=== PATIENT | male | born 1950 | race Caucasian/White ===

== ENCOUNTER 2022-01-01 10:37 | Outpatient (CLI) | payer MEDICARE, OTHER, SELFPAY ==
[2022-01-01 19:28] LABS: Uric Acid* 8.9 mg/dL (2.2-8.4)
== END 2022-01-01 10:38 | disposition home or self-care (01) ==
LOC: LONREF 10:39
PROVIDERS: PCP Family Medicine; Visit Provider Nurse Practitioner Family
DX: M10.9 Gout, unspecified (principal)
CPT/HCPCS: 84550

== ENCOUNTER 2022-05-05 09:29 | Outpatient (CLI) | payer MEDICARE, OTHER, SELFPAY ==
--- OUTSIDE RECORDS SUMMARY | 2022-05-05 09:42 | XMS_ITS | Clinical Summary ---
:1950 Author Organization [employer] [facility] [place] [employer] [place] [address] Care Team Providers Name Role Phone Ken Aleman MD Primary Care Provider Allergies Active Allergy Reactions Severity Noted Date Comments Fluconazole Rash 10/08/2015 Morphine Hypotension, Other - Describe In Comment Field Liraglutide Nausea And Vomiting 01/14/2018 Medications Medication Sig Dispensed Refills Start End Date Status Date ASPIRIN ORAL 81 mg daily 0 Activ e 7 Fish Oil-DHA-EPA Take by mouth. Pt 0 Active (FISH OIL) takes two capsules 1 1,200-144-216 mg bid. Cap lancetsIndication Test 1 times per 100 Each 3 Active s: Diabetes day. 8 mellitus without complication (HC) atorvastatin Take 1 tablet by 90 tablet 3 Active (LIPITOR) 40 mg mouth once daily. 9 tabletIndications : Dyslipidemia carvedilol Take 1 tablet by 180 tablet 3 A ctive (COREG) 25 mg mouth 2 times 9 tabletIndications daily with meals. : Hypertension, Diabetes mellitus without complication (HC) gemfibrozil Take 1 tablet by 180 tablet 3 Active (LOPID) 600 mg mouth 2 times 9 tabletIndications daily before : Type 2 diabetes meals. mellitus without complication, unspecified whether custodial insulin use (HC) omeprazole Take 1 capsule by 90 capsule 3 Active (PRILOSEC) 20 mg mouth once daily 9 Delayed-Release before a meal. capsuleIndication s: Type 2 diabetes mellitus without complication, unspecified whether terminal worker insulin use (HC) allopurinoL Take 2 tablets by 180 tablet 3 Active (ZYLOPRIM) 100 mg mouth once daily. 0 tabletIndications : Gout, unspecified cause, unspecified chronicity, unspecified site amLODIPine Take 10 mg by 0 Activ e (NORVASC) 10 mg mouth once daily. 0 tablet Diabetic As directed. 1 Device 0 Active ShoeIndications: dispense 1 pair 1 Controlled type 2 custom shoes with diabetes mellitus 3 sets of custom without orthotics complication, with long-term current use of insulin (HC) lisinopriL TAKE ONE TABLET BY 90 Tablet 1 Active (PRINIVIL; MOUTH ONE TIME 1 ZESTRIL) 40 mg DAILY tabletIndications : Type 2 diabetes mellitus without complication, unspecified whether terminal worker insulin use (HC) ketoconazole 2% 2X Per Week 0 Ac tive shampoo (NIZORAL) 0 2 % shampoo ketoconazole 2% apply to the 0 A ctive topical (NIZORAL) affected area 2 cream daily pimecrolimus apply a small 0 Act kirt (ELIDEL) 1 % amount to affected 2 cream area and rub in well, twice daily. insulin lispro Inject 100 units 180 mL 3 Active protamine-lispro, subcutaneous in 2 75-25, (HUMALOG the morning and 75-25 KWIKPEN) 100 units in the 100 unit/mL evening. Inject (75-25) before meals. penIndications: Type 2 diabetes mellitus without complication, with long-term current use of insulin (HC) blood sugar Dispense item 300 Each 3 Acti ve diagnostic covered by pt ins. 2 (Contour Next E11.65 IDDM type Test Strips) II, uncontrolled - stripIndications: Test 3 times/day. Type 2 diabetes mellitus without complication, with long-term current use of insulin (HC) pen needle, Dispense product 200 Each 3 A ctive diabetic (BD covered by 2 Insulin Pen insurance. For Needle UF) 31 administering gauge x insulin at home 2 11/17Indications: times daily. Controlled type 2 diabetes mellitus without complication, with long-term current use of insulin (HC) Diabetic As directed. 1 1 Each 0 Activ e ShoeIndications: pair of diabetic 2 Controlled type 2 shoes with 3 sets diabetes mellitus of custom molded without inserts complication, with long-term current use of insulin (HC) metFORMIN Take 1 Tablet 180 Tablet 1 Activ e (GLUCOPHAGE) (1,000 mg) by 2 1,000 mg mouth 2 times tabletIndications daily with meals. : Diabetes mellitus without complication (HC) metFORMIN Take 1 Tablet 180 tablet. 3 04/15/20 Disc ontinued (GLUCOPHAGE) (1,000 mg) by 1 22 1,000 mg mouth 2 times tabletIndications daily with meals. 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 Obstructive sleep apnea 01/08/2009 Overview: diagnosis 2008 - uses cpap Dyslipidemia 01/08/2009 Erectile dysfunction 01/08/2009 Gout, unspecified 01/08/2009 DIABETES 05/26/2002 Overview: diagnosis approximately 2000 Encounters Date Type Specialty Care Team Description 04/15/2022 Telephone Bret Solitario Conce rns MD 04/15/2022 Refill Bret Solitario Refil l Request (Metformin) 03/26/2022 Telephone Bret Solitario DME S upply (/Shoe inserts) 02/16/2022 Office Visit Bret Solitario Diabe carine (14 month follow up) 02/16/2022 Travel 02/09/2022 Orders Only Lab, [facility] 02/09/2022 Travel 02/02/2022 Telephone Bret Solitario Lab ( FASTING LAB ORDER FOR DIABETES CHECK) from Last 3 Months Immunizations Name Administration Dates Next Due Influenza A (H1N1), Inactivated 07/16/2009 Influenza Virus, Unspecified 04/11/2020, 04/13/2018, 016, 03/22/2012 Influenza, High-dose Inactivated 04/13/2018 Influenza, High-dose Quadrivalent 03/31/2021 Inactivated Influenza, IIV3 (Age 6-35 mos) 04/07/2011, 03/26/2009 Influenza, IIV3 (Age >=3 years) 04/11/2014, 04/10/2013, 03/05, 04/07/2011, 03/31/2010 Influenza, IIV4 04/21/2017, 04/23/2015, 07/16/2009 Influenza, Inactivated IIV3 (Age 65+ 03/28/2019 Years) Preserv Free Pneumococcal Poly,23-Valent 02/14/2020, 01/31/2015, 04/30/20 09 (Pneumovax) Pneumococcal conj 13-Valent (Prevnar 10/11/2017 13) Td (Age >=7 Years) 09/28/2003 Tdap 10/10/2021, 05/19/2012 Zoster (Shingrix-RZV, recombinant) 06/14/2019, 03/28/2019 Zoster (Zostavax-ZVL, live) 04/01/2012, 07/05/2011 Family History Medical History Relation Name Comments Diabetes Father pre Heart Disease Father after 55 Cancer-prostate Maternal Grandfather Diabetes Mother Other Mother alzheimers Cancer-prostate Paternal Uncle 1 multiple uncles w/ prost ca Heart Disease Paternal Uncle 2 [place] age 53 Relation Name Status Comments Father Alive Maternal Grandfather Mother Paternal Uncle 1 Paternal Uncle 2 Social History Tobacco Use Types Packs/Day Years Used Date Former Smoker Quit: 07/05/18 77 Smokeless Tobacco: Never Used Tobacco Cessation: Counseling Given: Yes Alcohol Use Standard Drinks/Week Comments Yes 0 (1 standard drink = 0.6 oz pure alcoho l) occasional beer 1 -2 week Alcohol Habits Answer Date Recorded How often do you have a drink containing Not asked alcohol? How many drinks containing alcohol do you Not asked have on a typical day when you are drinking? How often do you have six or more drinks on Not asked one occasion? Comment: occasional beer 1 -2 week 09/12/2013 Sex Assigned at Date Recorded Not on file Obstetrics History Last Filed Vital Signs Vital Sign Reading Time Taken Comments Blood Pressure 150/80 02/16/2022 11:29 AM CDT Pulse 76 02/16/2022 11:29 AM CDT Temperature 36.8 ??C (98.3 ??F) 04/13/2011 2:32 PM CDT Respiratory Rate 16 01/13/2018 4:17 PM CDT Oxygen Saturation 96% 12/10/2020 2:35 PM CDT Inhaled Oxygen Concentration - - Weight 111 kg (244 lb 11.2 oz) 02/16/2022 11:29 AM CDT Height 185.4 cm (6' 1) 06/03/2016 4:14 PM INVENTORY CONTROL CLERK Body Mass Index 32.28 06/03/2016 4:14 PM INVENTORY CONTROL CLERK Plan of Treatment Upcoming Encounters Date Type Specialty Care Team Description 08/20/2022 Office Visit Bret Solitario MD [address] [facility] [address] [place] [address] (Wo rk) Health Maintenance Due Date Last Done Comments Depression screening for age 12+ 1964 Hepatitis C screening for age 1105/08/1970 18-79 AAA screening age 55-77 2007 Medicare Wellness for age 65+ 2017 BMI (ht and wt on same day) for 06/03/2017 06/03/2016, 11/2015 age 18+ Colonoscopy through age 75 07/07/2020 07/07/2010 COVID-19 vaccine series (5 - 12/23/2021 10/28/2021, 021, Booster for Moderna series) 09/28/2020, Addition al history exists Influenza for age 65+ 03/05/2022 03/31/2021, 04/11/2020, 03/28/2019, Additional history exists Lipids for age 45-75 12/24/2025 12/24/2020, 12/24/2020, 02/09/2020, Additional history exists Tetanus booster 10/11/2031 10/10/2021, 05/19/2012, 09/28/2003 Zoster (shingles) series for age Completed 06/14/2019, , 50+ 04/01/2012, Additional history exists Pneumococcal series for age 65+ Completed 02/14/2020, 040 03/2018, 01/31/2015, Additional history exists Tdap Completed 10/10/2021, 05/19/2012 Procedures Procedure Name Priority Date/Time Associated Diagnosis Comme nts HEMOGLOBIN A1C Routine 02/09/2022 7:22 AM Type 2 diabetes Resu lts for this CDT mellitus without procedure a re in the complication, with results s ection. long-term current use of insulin (HC) from Last 3 Months Results (ABNORMAL) HEMOGLOBIN A1C MONITORING (POCT) (02/09/2022 7:22 AM CDT) Analysis Performed At Patho logist Time Signature HEMOGLOBIN A1C 7.4 (H) <=6.4 % 02/09/2022 [facility] MONITORING 7:36 AM CDT [facility] Specimen Anatomical Collection Method / Collection Time Recei mg Time (Source) Location / Volume Laterality Blood BLOOD SPECIMEN / Venipuncture / 02/09/2022 7:22 2021 7:22 Unknown Unknown AM CDT AM CDT Narrative [facility] - 2021 7:36 AM CDT ? (<=6.9%) ? Indicates good control ? (7.0% to 7.9%) ? Indicates fa ir control ? (>=8.0%) ? Indicates poor control ?? NOTE: ??These thresholds are guideli melany and ?individual targets may va ry. Falsely low levels may be seen with: Recent Transfusion, Recent Significant B lood Loss, Hemolytic Diseases, or Falsely elevated levels may be seen with : Untreated Anemias, Splenectomy ? Bret Solitario MD CHEMISTRY Performing Organization Address City/State/ZIP Code Phon e Number [facility] [address] [place] [address] from Last 3 Months Insurance Payer Benefit Plan / Subscriber ID Effective Dates Phone Addre ss Type Group MEDICARE - PB MEDICARE PB [id number] 2018-Present ATT N: CLAIMS USE ONLY ONLY [address] [place] [address] HEALTH FetchBack HP [id number] 2018-Presen [address] [place] [address] Advance Directives Documents on File Type Date Recorded Patient Supervisor Harvesting Explanati on Healthcare Directive 07/26/2012 2:26 PM [place] [facility] DIRECTIVE, [facility], 2012 Care Teams Health Safety Manager Relationship Specialty Start Date End Date Ken Aleman MD PCP - General Family Practice 07/04/13
[2022-05-05 11:18] LABS: Albumin* 4.8 g/dL (3.3-5.0)
[2022-05-05 11:19] LABS: Chloride* 106 mmol/L (96-114); Potassium* 4.9 mmol/L (3.6-5.1); Sodium* 141 mmol/L (135-149)
[2022-05-05 11:21] LABS: Bilirubin Total* 0.4 mg/dL (0.1-1.5); Creatinine* 0.9 mg/dL (0.5-1.5); Estimated Glomerular Filt Rate 92 ml/min
[2022-05-05 11:22] LABS: Alanine Aminotransferase* 27 U/L (4-50); Alkaline Phosphatase* 87 U/L (40-150); Aspartate Amino Transferase* 35 U/L (12-35); Blood Urea Nitrogen* 24 mg/dL (7-30); Calcium* 10.5 mg/dL (8.4-10.6); Carbon Dioxide* 22 mmol/L (20-32); Glucose* 136 mg/dL (60-115); Total Protein* 7.8 g/dL (6.0-8.3)
== END 2022-05-05 09:30 | disposition home or self-care (01) ==
LOC: NFLDREF 09:32
PROVIDERS: PCP Family Medicine; Visit Provider Family Medicine
DX: Z00.00 Encounter for general adult medical examination without abnormal findings (principal); E78.5 Hyperlipidemia, unspecified
CPT/HCPCS: 80053

== ENCOUNTER 2023-06-10 08:10 | Outpatient (CLI) | payer MEDICARE, OTHER, SELFPAY | END 2023-06-10 08:11 | disposition home or self-care (01) | LOC: NFLDREF 14:50 | PROVIDERS: PCP Family Medicine; Referring Provider Family Medicine; Visit Provider Family Medicine | DX: E11.9 Type 2 diabetes mellitus without complications (principal); D12.6 Benign neoplasm of colon, unspecified; Z12.5 Encounter for screening for malignant neoplasm of prostate | CPT/HCPCS: 80053; 80061; 82043; 82570; 84153 ==

== ENCOUNTER 2024-06-13 08:47 | Outpatient (CLI) | payer MEDICARE, OTHER, SELFPAY ==
--- OUTSIDE RECORDS SUMMARY | 2024-06-13 08:51 | XMS_ITS | Clinical Summary ---
Author Organization [employer] [facility] Address [place], [place] [address] Care Team Providers Care Handicrafts Teacher Name Role Phone Ken Aleman MD Primary Care Provider [phone] Bret Solitario MD Unavailable [phone] Allergies Active Allergy Reactions Criticality Noted Date Comments Fluconazole Rash 10/08/2015 Morphine Hypotension,Other - Describe In Comment Field Liraglutide Nausea And Vomiting 01/14/2018 Medications ASPIRIN ORAL 81 mg daily 0 7 Active Fish Oil-DHA-EPA (FISH OIL) 1,200-144-216 mg Cap Take by mouth. Pt takes two capsules bid. 0 1 Active lancetsIndicatio ns:Diabetes mellitus without complication (HC) Test 1 times per day. 100 Each 3 8 Active atorvastatin (LIPITOR) 40 mg tabletIndication s:Dyslipidemia Take 1 tablet by mouth once daily. 90 tablet 3 9 Active carvedilol (COREG) 25 mg tabletIndication s:Hypertension,D iabetes mellitus without complication (HC) Take 1 tablet by mouth 2 times daily with meals. 180 tablet 3 9 Active gemfibrozil (LOPID) 600 mg tabletIndication s:Type 2 diabetes mellitus without complication, unspecified whether intermediate school teacher insulin use (HC) Take 1 tablet by mouth 2 times daily before meals. 180 tablet 3 9 Active omeprazole (PRILOSEC) 20 mg Delayed-Release capsuleIndicatio ns:Type 2 diabetes mellitus without complication, unspecified whether intermediate school teacher insulin use (HC) Take 1 capsule by mouth once daily before a meal. 90 capsule 3 9 Active allopurinoL (ZYLOPRIM) 100 mg tabletIndication s:Gout, unspecified cause, unspecified chronicity, unspecified site Take 2 tablets by mouth once daily. 180 tablet 3 0 Active amLODIPine (NORVASC) 10 mg tablet Take 10 mg by mouth once daily. 0 Active lisinopriL (PRINIVIL; ZESTRIL) 40 mg tabletIndication s:Type 2 diabetes mellitus without complication, unspecified whether intermediate school teacher insulin use (HC) TAKE ONE TABLET BY MOUTH ONE TIME DAILY 90 Tablet 1 1 Active ketoconazole 2% shampoo (NIZORAL) 2 % shampoo 2X Per Week 0 Active ketoconazole 2% topical (NIZORAL) cream apply to the affected area daily 2 Active pimecrolimus (ELIDEL) 1 % cream apply a small amount to affected area and rub in well, twice daily. 2 Active triamcinolone (ARISTOCORT; KENALOG) 0.1 % cream apply topically to affected area(s) twice daily 2 Active blood sugar diagnostic (Contour Next Test Strips) stripIndications :Type 2 diabetes mellitus without complication, with long-term current use of insulin (HC) Test blood glucose 3 times daily 300 Each 3 3 Active medication order composerIndicati ons:Type 2 diabetes mellitus without complication, with long-term current use of insulin (HC) dispense a Lourdes 3 reader 1 Each 3 Active FreeStyle Lourdes 3 Sensor for continuous blood glucose monitor (CGM)Indications :Type 2 diabetes mellitus without complication, with long-term current use of insulin (HC) To be used to read blood sugars, follow electric refrigerator servicer directions. 9 Each 3 3 Active pen needle, diabetic (UltiCare Pen Needle) 31 gauge x 5/16Indications :Controlled type 2 diabetes mellitus without complication, with long-term current use of insulin (HC) use to administer insulin at home twice daily. 200 Each 3 4 Active insulin lispro protamine-lispro , 75-25, (HUMALOG 75-25 KWIKPEN) 100 unit/mL (75-25) penIndications:T ype 2 diabetes mellitus without complication, with long-term current use of insulin (HC) Inject 100 units subcutaneous in the morning and 100 units in the evening before meals. Take an additional 5-10 units at lunch depending on glucoses. 180 mL 3 4 Active Diabetic ShoeIndications: Controlled type 2 diabetes mellitus without complication, with long-term current use of insulin (HC) As directed. 1 pair of diabetic shoes with 3 sets of custom molded inserts 1 Each 4 Active metFORMIN (GLUCOPHAGE) 1,000 mg tabletIndication s:Diabetes mellitus without complication (HC) TAKE ONE TABLET BY MOUTH TWICE A DAY WITH MEALS 180 Tablet 1 4 Active Active Problems Problem Noted Date Diagnosed Date Unspecified hearing loss 09/14/2009 Overview (09/14/2009): Deaf Right Ear Obstructive sleep apnea 01/08/2009 Overview (01/08/2009): diagnosis 2008 - uses cpap Dyslipidemia 01/08/2009 Erectile dysfunction 01/08/2009 Gout, unspecified 01/08/2009 DIABETES 05/26/2002 Overview (01/03/2013): diagnosis approximately 2000 Encounters Date Type Department Care Team Description 04/17/2024 Refill [facility] [address] [facility] [address] [place] [address] Bret Solitario MD Refill Request (Metformin) from Last 3 Months Immunizations Name Administration Dates Next Due Influenza A (H1N1), Inactivated 07/16/2009 Influenza Virus, Unspecified 04/11/2020, 04/13/2018,04/18/2016,2011 Influenza, High-dose Inactivated 04/13/2018 Influenza, High-dose Quadriv alent Inactivated 04/16/2023,05/05/2022,03/31/2021 Influenza, IIV3 (Age 6-35 mos) 04/07/2011,2008 Influenza, IIV3 (Age >=3 years) 04/11/20 14,04/10/2013,03/22/2012,2010,03/31/2010 Influenza, IIV4 04/21/2017,04/23/2015,07/16/2009 Influenza, Inactivated IIV3 (Age 65+ Years) Preserv Free 03/28/2019 Pneumococcal Poly,23-Valent (Pneumovax) 02/14/2020,01/31/2015,04/30/2009 Pneumococcal conj 13-Valent (Prevnar 13) 10/11/2017 Td (Age >=7 Years) 09/28/2003 Tdap 10/10/2021,05/19/2012 Zoster (Shingrix-RZV, recombinant) 06/14/2019, Zoster (Zostavax-ZVL, live) 04/01/2012, 2 Family History Medical History Relation Name Comments Diabetes Father pre Heart Disease Father after 55 Cancer-prostate Maternal Grandfather Diabetes Mother Other Mother alzheimers Cancer-prostate Paternal Uncle 1 multiple uncles w/ prost ca Heart Disease Paternal Uncle 2 [place] age 53 Relation Name Status Comments Father Alive Maternal Grandfather Mother Paternal Uncle 1 Paternal Uncle 2 Social History Tobacco Use Types Packs/Day Years Used Date Smoking Tobacco: Former Cigarettes Q uit: 07/05/1974 Smokeless Tobacco: Never Tobacco Cessation:Counseling Given: Yes Alcohol Use Standard Drinks/Week Comments Yes 0 (1 standard drink = 0.6 oz pur e alcohol) occasional beer 1 -2 week Social Connections Answer Date Recorded Frequency of Communication with Friends and Fami ly Not on file 07/05/2021 Financial Resource Strain Answer Date R ecorded Difficulty of Paying Living Expenses Not on file 07/05/2021 Difficulty of Paying Living Expenses Not on file 07/05/2021 Sex and Gender Information Value Date Recorded Sex Assigned at Not on file Legal Sex Male 5:26 AM GAS REVERSER Gender Identity Not on file Sexual Orientation Not on file Obstetrics History Last Filed Vital Signs Vital Sign Reading Time Taken Comments Blood Pressure 122/74 02/29/2024 10:31 AM CDT Pulse 68 02/29/2024 10:31 AM CDT Temperature 36.8 C (98.3 F) 04/13/2011 2:32 PM CDT Respiratory Rate 12 08/30/2023 9:51 AM GAS REVERSER Oxygen Saturation 96% 12/10/2020 2:35 PM CDT Inhaled Oxygen Concentration - - Weight 106.3 kg (234 lb 6.4 oz) 024 10:31 AM CDT Height 185.4 cm (6' 1) 06/03/2016 4:14 PM GAS REVERSER Body Mass Index 30.93 06/03/2016 4:14 PM GAS REVERSER Plan of Treatment Upcoming Encounters Date Type Department Care Team (Late st Contact Info) Description 09/07/2024 10:30 AM GAS REVERSER Office Visit [facility] [address] [place] [address] Bret Solitario MD [address] [place] [address] Health Maintenance Due Date Last Done Comments Depression screening for age 12+ 1964 Hepatitis C screening for ag e 18-79 1970 AAA screening age 65-74 2017 Medicare Wellness for age 65+ 2017 BMI (ht and wt on same day) for age 18+ 06/03/2017 06/03/2016, 10/08/2015 Colonoscopy through age 75 07/07/2020 07/07/2010 COVID-19 vaccine series ( season) 2024 04/16/2023, 06/12/2022, 10/28/2021, Additional history exists Influenza for age 65+ 03/05/2024 04/16/2023 , 05/05/2022, 03/31/2021, Additional history exists RSV vaccine for adults or (1 - 1-dose 75+ series) 2027 Lipids for age 45-75 02/28/2029 02/29/2024, 02/23/2023, 02/23/2023, Additional history exists Tetanus booster 10/11/2031 10/10/2021, 05/05, 09/28/2003 Zoster (shingles) series for age 50+ Completed 06/14/2019, 03/28/2019, 04/01/2012, Additional history exists Pneumococcal series for age 65+ Completed 02/14/2020, 10/11/2017, 01/31/2015, Additional history exists Tdap Completed 10/10/2021, 05/19/2012 Procedures Procedure Name Priority Date/Time Associated Diagnosis Comments LIPID PANEL W REFLEX MEASURED LDL Routine 02/29/2024 10:23 AM CDT Mixed dyslipidemia SCAN-COLONOSCOPY 07/07/2010 12:0 0 AM GAS REVERSER from Last 3 Months or Most Recently Relevant to Health Maintenance Results * (ABNORMAL) LIPID PANEL W REFLEX MEASURED LDL (02/29/2024 10:23 AM CDT) CHOLESTEROL,TOTAL 174 100 - 199 mg/dL 02/29/2024 11:02 AM [facility] Comment: Cholesterol, Total Reference Ranges Desirable <200 mg/dL Borderline 200-239 mg/dL High >=240 mg/dL TRIGLYCERIDES 385(H) <150 mg/dL 02/29/2024 11:02 AM [facility] HDL CHOLESTEROL 29(L) >40 mg/dL 11:02 AM [facility] NON-HDL CHOLESTEROL 145(H) <145 mg/dl 02/29/2024 11:02 AM [facility] CHOL/HDL RATIO 6.00(H) <4.50 02/29/2024 11:02 AM [facility] LDL CHOLESTEROL 68 <=130 mg/dL 02/29/2024 11:02 AM [facility] VLDL CHOLESTEROL 77(H) <=30 mg/dL 02/29/2024 11:02 AM [facility] PROVIDER ORDERED STATUS FASTING 02/29/2024 11:02 AM [facility] Blood BLOOD SPECIMEN / Unknown Venipuncture / Unknown 02/29/2024 10:23 AM CDT 02/29/2024 10:23 AM CDT us Bret Solitario MD CHEMISTRY Final Re sult [facility] SENDOUT [place]NAL ZIP [phone] [place] [address] * SCAN-COLONOSCOPY (07/07/2010 12:00 AM GAS REVERSER) Narrative Procedure Note Scanner - 07/07/2010 12:00 AM GAS REVERSER us Scanner OTHER Final Result from Last 3 Months or Most Recently Relevant to Health Maintenance Insurance MEDICARE PB ONLY MEDICARE PART A HB ONLY JAGDISH HERNANDEZ [id number] MEDICARE PB ONLY MEDICARE PART A HB ONLY Advance Directives Documents on File Type Date Recorded Patient Customer Quality Specialist Expl anation Healthcare Directive 07/26/2012 2:26 PM [place] [facility], [facility], 07/21/2012 Care Teams Handicrafts Teacher Relationship Specialty Start Date End Date Ken Aleman MD PCP - General Family Practice 07/04/13 Bret Solitario MD [address] [place] [address] Endocrinology 08/19/22
== END 2024-06-13 08:48 | disposition home or self-care (01) ==
PROVIDERS: PCP Family Medicine; Visit Provider Family Medicine
DX: D64.9 Anemia, unspecified (principal); R94.5 Abnormal results of liver function studies; Z12.5 Encounter for screening for malignant neoplasm of prostate
CPT/HCPCS: 80076; G0103

== ENCOUNTER 2024-11-29 09:51 | Outpatient (CLI) | payer MEDICARE, OTHER, SELFPAY | END 2024-11-29 09:52 | disposition home or self-care (01) | PROVIDERS: PCP Family Medicine; Visit Provider Family Medicine | DX: I46.9 Cardiac arrest, cause unspecified (principal) | CPT/HCPCS: A0429 ==